=== PATIENT | male | born 2000 | race Caucasian/White ===

== ENCOUNTER 2022-02-05 23:52 | Inpatient (IN) ==
[2022-02-06 07:38] LABS: Influenza A PCR Negative (Negative); Influenza B PCR Negative (Negative); Resp. Syncytial Virus PCR Negative (Negative)
[2022-02-06 08:14] LABS: SARS-CoV-2 by PCR (In House) Negative (Negative)
[2022-02-06] MEDS ORDERED: haloperidoL 5 MG TABLET PO PRN (08:58)
[2022-02-06] MEDS ORDERED: QUEtiapine Fumarate 25 MG TABLET PO PRN (08:58)
[2022-02-06] MEDS ORDERED: Acetaminophen 325 MG TABLET PO PRN (08:58)
[2022-02-06] MEDS ORDERED: *HR* LORazepam 2 MG/ML VIAL IM PRN (08:58)
[2022-02-06] MEDS ORDERED: Haloperidol Lactate 5 MG/ML VIAL IM PRN (08:58)
[2022-02-06] MEDS: *HR* LORazepam 1 MG TABLET PO PRN ×2 (10:58→17:06)
[2022-02-06] MEDS: risperiDONE 1 MG TABLET PO SCH ×2 (10:58→20:28)
[2022-02-06] MEDS: Nicotine 2 MG GUM BC PRN ×2 (10:58→21:08)
[2022-02-07] MEDS ORDERED: traZODone 50 MG TABLET PO PRN (08:07)
[2022-02-07] MEDS: risperiDONE 1 MG TABLET PO SCH ×2 (08:36→21:03)
[2022-02-07] MEDS: Nicotine 2 MG GUM BC PRN ×2 (09:43→21:03)
[2022-02-08] MEDS: risperiDONE 1 MG TABLET PO SCH ×3 (08:54→21:25)
[2022-02-09] MEDS: risperiDONE 1 MG TABLET PO SCH ×3 (09:25→21:55)
[2022-02-09] MEDS: Nicotine 2 MG GUM BC PRN (13:07)
[2022-02-09] MEDS: hydrOXYzine pamoate 25 MG CAPSULE PO PRN (14:40)
[2022-02-10] MEDS: risperiDONE 1 MG TABLET PO SCH ×3 (08:28→22:12)
[2022-02-10] MEDS: hydrOXYzine pamoate 25 MG CAPSULE PO PRN ×2 (13:36→22:12)
[2022-02-11] MEDS: risperiDONE 1 MG TABLET PO SCH ×3 (09:57→20:38)
[2022-02-11] MEDS: hydrOXYzine pamoate 25 MG CAPSULE PO PRN (20:38)
[2022-02-12] MEDS: risperiDONE 1 MG TABLET PO SCH ×2 (10:12→21:19)
[2022-02-12] MEDS ORDERED: MOM Conc 10 ML UD.LIQ PO PRN (11:50)
[2022-02-12] MEDS ORDERED: Mag Hydrox/Al Hydrox/Simeth 30 ML UDC PO PRN (11:50)
[2022-02-12] MEDS: *HR* LORazepam 0.5 MG TABLET PO SCH ×2 (17:13→21:18)
[2022-02-13] MEDS: *HR* LORazepam 0.5 MG TABLET PO SCH ×3 (08:53→20:54)
[2022-02-13] MEDS: risperiDONE 1 MG TABLET PO SCH (08:53)
[2022-02-13] MEDS ORDERED: Paliperidone Palmitate 234 MG/1.5 ML SYRINGE IM ONE (10:00)
[2022-02-14] MEDS: *HR* LORazepam 0.5 MG TABLET PO SCH ×3 (08:32→20:42)
[2022-02-14] MEDS: Nicotine 2 MG GUM BC PRN ×2 (16:57→19:24)
[2022-02-15] MEDS: *HR* LORazepam 0.5 MG TABLET PO SCH (08:20)
[2022-02-15] MEDS ORDERED: Haloperidol Oral Conc 10 MG/5 ML UDC PO SCH (15:00)
[2022-02-15] MEDS: *HR* LORazepam Oral Conc 2 MG/ML PO SCH (15:34)
[2022-02-16] MEDS: *HR* LORazepam Oral Conc 2 MG/ML PO SCH ×3 (00:22→14:23)
[2022-02-16] MEDS: *HR* LORazepam 0.5 MG TABLET PO SCH ×3 (09:45→20:39)
[2022-02-16] MEDS: haloperidoL 1 MG TABLET PO SCH (15:50)
[2022-02-17] MEDS: *HR* LORazepam 0.5 MG TABLET PO SCH ×3 (08:31→20:20)
[2022-02-17] MEDS ORDERED: Paliperidone Palmitate 156 MG/ML SYRINGE IM SCH (10:00)
[2022-02-17] MEDS: haloperidoL 1 MG TABLET PO SCH (13:58)
[2022-02-18] MEDS: *HR* LORazepam 0.5 MG TABLET PO SCH ×3 (08:19→21:27)
[2022-02-18] MEDS: haloperidoL 1 MG TABLET PO SCH (14:08)
[2022-02-19 08:19] VITALS: BP 120/76; PULSE 87; TEMP 97.5; O2SAT 99
[2022-02-19] MEDS: *HR* LORazepam 0.5 MG TABLET PO SCH (08:23)
== END 2022-02-19 11:30 | disposition home or self-care (01) | DRG 750 ==
LOC: EMEROOARM 23:52 → 1ANU 02-06 08:33 → INTOOBSV 02-06 08:33 → 1ANU 02-06 09:05
PROVIDERS: ADMIT Psychiatry & Neurology Psychiatry; ATTEND Psychiatry & Neurology Psychiatry